=== PATIENT | male | born 1980 | race Caucasian/White ===

== ENCOUNTER 2017-03-02 19:24 | Inpatient (IN) | payer MEDICAID, OTHER, SELFPAY ==
[~2017-03-02] VITALS: Ht 190.5 cm; Wt 101.0 kg
[~2017-03-02 19:24] MED LIST: CETI10TA PO; NO HOME MEDICATION; PROZ20CA11 PO; TRAZ100T2 PO
[2017-03-02 20:24] LABS: MEAN CORPUSCULAR HEMOGLOBIN 31.3 pg (27.0-33.0); MEAN CORPUSCULAR HGB CONC 34.6 g/dl (32.0-36.5); MEAN CORPUSCULAR VOLUME 90.3 fl (80.0-96.0); RED CELL DISTRIBUTION WIDTH 12.6 % (11.5-14.5); WHITE BLOOD COUNT 11.9 K/mm3 (4.0-10.0)
[2017-03-02 20:50] LABS: METHADONE URINE NEGATIVE (NEGATIVE)
[2017-03-02 21:10] LABS: ALBUMIN 4.5 GM/DL (3.2-5.2); ALBUMIN/GLOBULIN RATIO 1.25 (1.00-1.93); ALKALINE PHOSPHATASE 74 U/L (45-117); ALT/SGPT 45 U/L (12-78); ANION GAP 11 MEQ/L (8-16); AST/SGOT 26 U/L (15-37); BILIRUBIN,DIRECT 0.2 MG/DL (0.0-0.2); BILIRUBIN,TOTAL 0.6 MG/DL (0.2-1.0); BLOOD UREA NITROGEN 9 MG/DL (7-18); CALCIUM LEVEL 10.1 MG/DL (8.5-10.1); CARBON DIOXIDE LEVEL 23 MEQ/L (21-32); CHLORIDE LEVEL 98 MEQ/L (98-107); CREATININE FOR GFR 1.13 MG/DL (0.70-1.30); GLOMERULAR FILTRATION RATE > 60.0 (>60); GLUCOSE, FASTING 100 MG/DL (70-105); POTASSIUM SERUM 3.5 MEQ/L (3.5-5.1); SODIUM LEVEL 132 MEQ/L (136-145); TOTAL PROTEIN 8.1 GM/DL (6.4-8.2)
[2017-03-02] MEDS ORDERED: TUMS750C20 PO (21:36)
[2017-03-02] MEDS ORDERED: TYLE500T78 PO (21:36)
[2017-03-02 23:11] VITALS: BP 140/92
[2017-03-03] MEDS ORDERED: MAALOX 30 ML SUSP *UDC PO PRN
[2017-03-03] MEDS ORDERED: MOM 30ML SUSPENSION UDC PO PRN
[2017-03-03] MEDS: traZODone 50 MG TAB PO PRN ×2 (01:10→21:17)
[2017-03-03] MEDS: OLANZapine ORAL DISINTEGRATING TAB 5MG PO PRN ×2 (01:10→08:50)
[2017-03-03] MEDS: NICOTINE 21MG/24HR 1 EA TRANSDERMAL TD SCH (08:47)
[2017-03-03] MEDS: ACETAMINOPHEN TAB 650MG DOSE (2X325MG) PO PRN (08:48)
--- NOTE | 2017-03-03 10:29 | HPEPDOC ---
Medical History and Physical Date of Admission Mar 02, 2017 at 22:09 History and Physical PCP: None ATTENDING: Dr. Rj Farias HPI: 37 yo M admitted to [facility] for unspecified depressive disorder, being medically examined today. No acute medical complaints today. Denies any fevers, chills, weakness, fatigue, MOSLEY, CP, SOB, cough, palpitations, abdominal pain, N/V /D or changes in bowel or bladder habits. PMHx: Anxiety Depression OCD ODD Insomnia PTSD Poor dentition PSHX: Denies SOCHX: Resides in: Homeless Marital Status: Single Kids: None Employment: Unemployed Tobacco use: 2 packs per day ETOH: A few times per week 3-6 drinks Illicit Drugs: Marijuana 1-2 times per week IV Drug Use: Denies Tattoos done unprofessionally: Denies FAMHX: Mother: Alive, well Father: , cancer Siblings: One sister Alive, well Children: None Unexpected deaths due to medical reasons: None. ROS: As noted in HPI, otherwise 11pt ROS of systems reviewed and remarkable only for poor dentition however the patient states he has not been having any dental pain recently. PE: GEN: 37 yo M, appears stated age. Well-nourished, well developed. No acute distress. Alert and oriented x 3. Avoids eye contact, slow to answer questions, mumbling. HEENT: Normocephalic, atraumatic. Pupils are equal, round, and reactive to light. Extraocular movements are intact. No nystagmus appreciated. Sclera are nonicteric. Conjunctiva without injection. Nose midline. Nasal turbinates without bogginess. EACs both patent BL. TMs both visualized and cardona with good cone of light, no bulging or erythema. No facial asymmetry. Moist mucous membranes. Dentition fair. Pharynx pink and moist, no cobblestoning. Neck supple , trachea midline. No lymphadenopathy or thyromegaly appreciated. CHEST: Regular rate and rhythm, +S1, +S2 LUNGS: Clear to auscultation bilaterally. No wheezes, rales, or rhonchi. Breathing appears symmetric and easy. Patient is speaking in full sentences. No accessory muscle use. ABD: Round, soft, non-tender, non-distended. +Bowel sounds throughout. No rebound or guarding. No costovertebral angle tenderness. EXT: Pulses 2+ bilaterally dorsalis pedis and radial. No lower extremity edema appreciated. SKIN: [place], dry, warm. Capillary refill <2sec. No rashes. NEURO: Alert and oriented x 3. Cranial nerves III-XII are intact. No focal deficits appreciated. EKG: Pending A&P: 37 yo M admitted to [facility] for unspecified depressive disorder 1. Psych. Plan per Psychiatry. Obtain baseline EKG to assure the safety of psychiatric medications as they can prolong the QT interval. 2. Nicotine dependence. Patch available. 3. Poor dentition. No issues currently. Tylenol if needed. Outpatient follow-up with dental provider. 4. Follow up. No Primary Care Provider. Will attempt to establish PCP on discharge. 5. Substance use. Per psychiatry. 6. Mild leukocytosis. Patient is afebrile. Asymptomatic. Recheck CBC in a.m. 7. Hyponatremia. Patient reports poor by mouth intake prior to admission, states he is eating and drinking. Recheck CMP in a.m. 8. Staff member Parish present throughout exam. Vital Signs Vital Signs Date Time Temp Pulse Resp B/P (MAP) Pulse Ox O2 Delivery O2 Flow Rate FiO2 03/02/17 23:11 97.8 68 140/92 (108) Room Air 03/02/17 22:56 16 95 Laboratory Data Labs 24H Laboratory Tests 2 03/02/17 20:09: Anion Gap 11, Glomerular Filtration Rate > 60.0, Calcium Level 10.1, Aspartate Amino Transf (AST/SGOT) 26, Alanine Aminotransferase (ALT/SGPT) 45, Alkaline Phosphatase 74, Total Bilirubin 0.6, Direct Bilirubin 0.2, Total Protein 8.1, Albumin 4.5, Albumin/Globulin Ratio 1.25, Thyroid Stimulating Hormone (TSH) 1.310, Salicylates Level 2.9L, Acetaminophen Level < 2.0L, Ethyl Alcohol Level < 0.003 03/02/17 20:26: Urine Amphetamines Screen NEGATIVE, Urine Benzodiazepines Screen NEGATIVE, Urine Opiates Screen NEGATIVE, Urine Methadone Screen NEGATIVE, Urine Barbiturates Screen NEGATIVE, Urine Phencyclidine Screen NEGATIVE, Urine Cocaine Metabolite Screen NEGATIVE, Urine Cannabinoids Screen POSITIVEH CBC/BMP Laboratory Tests 03/02/17 20:09 Red Blood Count 5.13, Mean Corpuscular Volume 90.3, Mean Corpuscular Hemoglobin 31.3, Mean Corpuscular Hemoglobin Concent 34.6, Red Cell Distribution Width 12.6 Home Medications Scheduled PRN Acetaminophen (Tylenol Extra Strength) 500 Mg Tab, 1,000 MG PO Q6H PRN for PAIN Calcium Carbonate (Tums E-X 750) 750 Mg Chw, 1,500 MG PO Q6H PRN for HEARTBURN Allergies Coded Allergies: No Known Allergies (Unverified , 03/02/17) Sylvia Joy Mar 03, 2017 10:29
[2017-03-03] MEDS: FLUoxetine 20 MG CAP PO SCH (12:39)
[2017-03-03 18:32] VITALS: BP 131/77
[2017-03-03] MEDS ORDERED: QUEtiapine FUMARATE 100 MG TAB PO SCH (21:00)
[2017-03-04 06:51] LABS: MEAN CORPUSCULAR HGB CONC 35.3 g/dl (32.0-36.5); MEAN CORPUSCULAR VOLUME 90.4 fl (80.0-96.0); RED CELL DISTRIBUTION WIDTH 12.2 % (11.5-14.5); WHITE BLOOD COUNT 7.8 K/mm3 (4.0-10.0)
[2017-03-04 07:08] VITALS: BP 157/86
[2017-03-04 07:21] LABS: ALBUMIN/GLOBULIN RATIO 1.21 (1.00-1.93); ALKALINE PHOSPHATASE 61 U/L (45-117); ALT/SGPT 41 U/L (12-78); ANION GAP 8 MEQ/L (8-16); AST/SGOT 19 U/L (15-37); BILIRUBIN,TOTAL 0.6 MG/DL (0.2-1.0); BLOOD UREA NITROGEN 16 MG/DL (7-18); CALCIUM LEVEL 9.2 MG/DL (8.5-10.1); CARBON DIOXIDE LEVEL 25 MEQ/L (21-32); CHLORIDE LEVEL 103 MEQ/L (98-107); CREATININE FOR GFR 1.21 MG/DL (0.70-1.30); GLOMERULAR FILTRATION RATE > 60.0 (>60); GLUCOSE, FASTING 102 MG/DL (70-105); SODIUM LEVEL 136 MEQ/L (136-145); TOTAL PROTEIN 7.3 GM/DL (6.4-8.2)
[2017-03-04] MEDS: NICOTINE 21MG/24HR 1 EA TRANSDERMAL TD SCH (08:45)
[2017-03-04] MEDS: FLUoxetine 20 MG CAP PO SCH (08:45)
[2017-03-04] MEDS: OLANZapine ORAL DISINTEGRATING TAB 5MG PO PRN (08:45)
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
[2017-03-04 12:00] VITALS: BP 120/77
[2017-03-04 18:00] VITALS: BP 129/73
[2017-03-04] MEDS ORDERED: QUEtiapine FUMARATE 100 MG TAB PO SCH (21:00)
[2017-03-05 06:23] VITALS: BP 124/63
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
[2017-03-05] MEDS: FLUoxetine 20 MG CAP PO SCH (08:01)
[2017-03-05] MEDS: NICOTINE 21MG/24HR 1 EA TRANSDERMAL TD SCH (08:02)
[2017-03-05] MEDS: OLANZapine ORAL DISINTEGRATING TAB 5MG PO PRN (08:23)
[2017-03-05] MEDS: ACETAMINOPHEN TAB 650MG DOSE (2X325MG) PO PRN (10:08)
[2017-03-05 11:47] VITALS: BP 130/70
[2017-03-05 18:00] VITALS: BP 138/92
[2017-03-05] MEDS: QUEtiapine FUMARATE 100 MG TAB PO SCH (20:34)
[2017-03-06 06:35] VITALS: BP 137/72
[2017-03-06] MEDS: NICOTINE 21MG/24HR 1 EA TRANSDERMAL TD SCH (08:58)
[2017-03-06] MEDS: FLUoxetine 20 MG CAP PO SCH (08:59)
[2017-03-06] MEDS: OLANZapine ORAL DISINTEGRATING TAB 5MG PO PRN ×2 (08:59→16:17)
[2017-03-06 11:53] VITALS: BP 137/87
--- NOTE | 2017-03-06 12:32 | IPN ---
DATE: 03/05/2017 VITAL SIGNS: Temperature 97.0, pulse 65, respirations 18, blood pressure 124/63. CURRENT MEDICATIONS: - Seroquel 200 mg at bedtime - Prozac 20 mg every morning - trazodone 50 mg at bedtime as needed - Zyprexa 5 mg every 4 hours as needed HISTORY OF PRESENT ILLNESS: Patient fell asleep faster with the Seroquel. He did not stay asleep. He woke up fairly often. He was disrupted by the 15-minute checks. He did not feel comfortable having his door open. He would keep getting up to close it. He does like to take the Zyprexa first thing in the morning, which seems to help with his anxiety and perhaps his paranoia. His appetite is good. He is eating well here. His concentration is poor, however. He still feels moderately depressed. He is afraid to go to groups. He complains of rowdy peers. He appears paranoid of others. He is encouraged to be more socially engaged. He spends a lot of time in his bedroom isolating. Patient has a single room but may have to be switched to a double. Obsessive-compulsive disorder (OCD) symptoms are mild. MENTAL STATUS EXAMINATION: Patient is alert and oriented. He remains anxiety and phobic. He reports OCD symptoms. Affect is sad. Mood is moderately depressed. Patient does appear paranoid but denies hearing voices. Insight and judgment remain fair. DIAGNOSES: 1. Major depression, recurrent, moderate severity. 2. Delusional disorder, persecutory type. 3. Obsessive-compulsive disorder. 4. Panic/anxiety disorder. 5. Alcohol use disorder. 6. Cannabis use disorder. PLAN: Increase Seroquel to 300 mg at bedtime. Continue use of Zyprexa as needed. Staff to work on housing issues.
[2017-03-06 18:16] VITALS: BP 135/90
[2017-03-06] MEDS: ACETAMINOPHEN TAB 650MG DOSE (2X325MG) PO PRN (18:51)
[2017-03-06] MEDS: QUEtiapine FUMARATE 100 MG TAB PO SCH (20:48)
[2017-03-07 06:08] VITALS: BP 143/82
[2017-03-07] MEDS: FLUoxetine 20 MG CAP PO SCH (07:45)
[2017-03-07] MEDS: OLANZapine ORAL DISINTEGRATING TAB 5MG PO PRN ×2 (07:45→17:11)
[2017-03-07] MEDS: NICOTINE 21MG/24HR 1 EA TRANSDERMAL TD SCH (07:47)
[2017-03-07 12:00] VITALS: BP 140/85
[2017-03-07] MEDS: ACETAMINOPHEN TAB 650MG DOSE (2X325MG) PO PRN (17:11)
[2017-03-07 18:23] VITALS: BP 140/82
[2017-03-07 20:00] VITALS: BP 136/84
[2017-03-07] MEDS: QUEtiapine FUMARATE 100 MG TAB PO SCH (20:56)
[2017-03-08 06:47] VITALS: BP 154/81
[2017-03-08] MEDS: OLANZapine ORAL DISINTEGRATING TAB 5MG PO PRN (07:39)
[2017-03-08] MEDS: NICOTINE 21MG/24HR 1 EA TRANSDERMAL TD SCH (07:40)
[2017-03-08] MEDS: FLUoxetine 20 MG CAP PO SCH (07:40)
[2017-03-08 07:45] VITALS: BP 122/78
[2017-03-08 12:00] VITALS: BP 142/92
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
[2017-03-08] MEDS: [UNRECOGNIZED DRUG - OTHER] TOP SCH ×2 (14:32→20:47)
[2017-03-08] MEDS: OLANZapine 5 MG TAB PO SCH ×2 (14:32→20:46)
[2017-03-08 18:00] VITALS: BP 138/80
--- NOTE | 2017-03-08 19:52 | MHIPN ---
DATE: 03/08/2017 VITAL SIGNS: Temperature 97.3, pulse 95, respirations 16, blood pressure 154/81. CURRENT MEDICATIONS: - Prozac 20 mg every morning - trazodone 50 mg nightly as needed - Seroquel 300 mg nightly - Zyprexa 5 mg every 4 hours as needed HISTORY OF PRESENT ILLNESS: Patient's room was moved, he is tolerating the roommate well. He likes the Zyprexa, it seems to help with the anxiety and the paranoia. It seems to be helping his mood as well. He feels less depressed. He is having a rare good day. His appetite is fine. He sleeps well at night with the Seroquel. He has been getting out of his room more often and attending some groups. He is contemplating leaving [place] and moving to [place] where his mother lives. This would get him away from the paranoid conspiracy here regarding Mr. Zuniga. The patient got some information from a group that helps with independent living here in the [place] area. MENTAL STATUS EXAMINATION: Patient is alert and oriented. He still appears anxious and worried. Obsessive compulsive disorder (OCD) symptoms are mild. Mood is mildly to moderately depressed. The patient still reports some paranoia. He denies hearing voices. Denying current suicidal thoughts. Insight and judgment remain fair. DIAGNOSES: 1. Major depression, recurrent, moderate severity. 2. Delusional disorder, persecutory type. 3. Obsessive compulsive disorder (OCD). 4. Panic anxiety disorder. 5. Alcohol use disorder. 6. Cannabis use disorder. PLAN: Patient to be given a standing dose of Zyprexa 5 mg twice a day.
[2017-03-08] MEDS: QUEtiapine FUMARATE 100 MG TAB PO SCH (20:47)
[2017-03-09 06:00] VITALS: BP 142/96
[2017-03-09] MEDS: NICOTINE 21MG/24HR 1 EA TRANSDERMAL TD SCH (08:01)
[2017-03-09] MEDS: OLANZapine 5 MG TAB PO SCH ×2 (08:01→20:11)
[2017-03-09] MEDS: FLUoxetine 20 MG CAP PO SCH (08:01)
[2017-03-09] MEDS: [UNRECOGNIZED DRUG - OTHER] TOP SCH ×2 (08:01→20:57)
[2017-03-09] MEDS: OLANZapine ORAL DISINTEGRATING TAB 5MG PO PRN (12:59)
[2017-03-09 18:00] VITALS: BP 127/78
[2017-03-09] MEDS: ACETAMINOPHEN TAB 650MG DOSE (2X325MG) PO PRN (18:59)
[2017-03-09] MEDS: QUEtiapine FUMARATE 100 MG TAB PO SCH (20:56)
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
[2017-03-10 07:07] VITALS: BP 146/90
[2017-03-10] MEDS: NICOTINE 21MG/24HR 1 EA TRANSDERMAL TD SCH (08:52)
[2017-03-10] MEDS: OLANZapine 5 MG TAB PO SCH ×2 (08:52→20:14)
[2017-03-10] MEDS: FLUoxetine 20 MG CAP PO SCH (08:52)
[2017-03-10] MEDS: [UNRECOGNIZED DRUG - OTHER] TOP SCH ×2 (08:53→20:15)
[2017-03-10] MEDS: OLANZapine ORAL DISINTEGRATING TAB 5MG PO PRN (13:28)
[2017-03-10 18:31] VITALS: BP 151/89
[2017-03-10] MEDS: QUEtiapine FUMARATE 100 MG TAB PO SCH (21:34)
[2017-03-11 06:23] VITALS: BP 128/71
--- NOTE | 2017-03-11 07:29 | IPN ---
DATE: 03/10/2017 Temperature 97.0, pulse 79, respirations 18, blood pressure 146/90. CURRENT MEDICATION: - Prozac 40 mg every morning - Zyprexa 5 mg twice a day - Seroquel 300 mg at bedtime (hs) - trazodone 50 mg hs as needed - Zyprexa 5 mg every 4 hours as needed HISTORY OF PRESENT ILLNESS: The patient is starting a higher dose of Prozac this morning. He has not received it yet. Yesterday was not as good a day as the day before. He did feel more anxious and dysphoric yesterday. He did push himself, however, to go to the groups. Depression was in a moderate range. Obsessive compulsive disorder (OCD) symptoms were mild. He does like to wash his hands constantly. He is concerned and phobic about germs. He does like the Zyprexa; it helps with anxiety, but also paranoia. He appears to have social phobic symptoms, but also paranoid ideation. He is afraid people might be poisoning him for example. He does admit that this temper is like a "time bomb." He states that his sister also has a bad temper and can be quite violent when intoxicated. The patient is currently homeless. He has no health insurance. Staff has been in touch with his mother. One possible option would to be discharge to her care in [place]. Otherwise, he might need to go to local [facility]. MENTAL STATUS EXAMINATION: The patient is alert and oriented. He is cooperative. He is still quite anxious and worried. Depression is in the moderate range. He is not current suicidal. he patient is still paranoid, but denies hearing voices. No signs of thought disorder. Insight and judgment are fair. DIAGNOSIS: 1. Major depression recurrent, moderate in severity. 2. Delusional disorder, persecutory type. 3. Obsessive compulsive disorder (OCD). 4. Panic anxiety disorder. 5. Alcohol use disorder. 6. Cannabis use disorder. PLAN: Continue current psychotropics. Staff working on various housing options. Prozac dose to be increased today. The patient to be monitored for any potential side effects.
[2017-03-11] MEDS: [UNRECOGNIZED DRUG - OTHER] TOP SCH ×2 (08:20→20:37)
[2017-03-11] MEDS: OLANZapine 5 MG TAB PO SCH ×2 (08:21→20:36)
[2017-03-11] MEDS: FLUoxetine 20 MG CAP PO SCH (08:21)
[2017-03-11] MEDS: NICOTINE 21MG/24HR 1 EA TRANSDERMAL TD SCH (08:21)
[2017-03-11] MEDS: ACETAMINOPHEN TAB 650MG DOSE (2X325MG) PO PRN (09:58)
[2017-03-11] MEDS: OLANZapine ORAL DISINTEGRATING TAB 5MG PO PRN (16:49)
[2017-03-11 18:00] VITALS: BP 142/89
[2017-03-11] MEDS: QUEtiapine FUMARATE 100 MG TAB PO SCH (20:37)
[2017-03-12 06:35] VITALS: BP 150/77
--- NOTE | 2017-03-12 08:12 | MHIPN ---
DATE: 03/11/2017 VITAL SIGNS: Temperature 97.9, pulse 69, respirations 16, blood pressure 128/71. CURRENT MEDICATIONS: - Prozac 40 mg every morning - Zyprexa 5 mg twice a day - Seroquel 300 mg at bedtime - trazodone 50 mg at bedtime as needed HISTORY OF PRESENT ILLNESS: The patient tolerated the 40 mg dose of Prozac well yesterday. He has no gastrointestinal side effects. He thinks his anxiety is less prominent. He still has a lot of social anxiety, however. He is quite phobic. He does have to push himself to go to the groups. The Zyprexa does seem to have helped with the paranoia. For example, in the past he has felt that people were spying on him and/or trying to poison his food. His appetite has been fine on the unit. He is sleeping well at night with the psychotropics, but did have a nightmare last night which may have been due to his wearing the nicotine patch. He is requesting help with his Social Security application from an agency in the community. He is interested in going into transitional living services ([facility]) now. MENTAL STATUS EXAMINATION: The patient is alert, oriented and cooperative. The patient is chronically anxious and worried. Depression is in the moderate range. The patient is not currently suicidal. Paranoia persists. No signs of thought disorder. Insight and judgment are fair. DIAGNOSES: 1. Major depression, recurrent, moderate severity. 2. Delusional disorder, persecutory type. 3. Obsessive compulsive disorder. 4. Panic anxiety disorder. 5. Alcohol use disorder. 6. Cannabis use disorder. PLAN: No change in psychotropics. Patient to remove his nicotine patch before bedtime. staff to work on [facility] housing options upon discharge. CHULA
[2017-03-12] MEDS: NICOTINE 21MG/24HR 1 EA TRANSDERMAL TD SCH (09:03)
[2017-03-12] MEDS: FLUoxetine 20 MG CAP PO SCH (09:04)
[2017-03-12] MEDS: [UNRECOGNIZED DRUG - OTHER] TOP SCH ×2 (09:04→21:09)
[2017-03-12] MEDS: OLANZapine 5 MG TAB PO SCH ×2 (09:04→21:08)
[2017-03-12] MEDS: ACETAMINOPHEN TAB 650MG DOSE (2X325MG) PO PRN ×2 (09:32→20:37)
[2017-03-12] MEDS: OLANZapine ORAL DISINTEGRATING TAB 5MG PO PRN (15:45)
[2017-03-12 18:00] VITALS: BP 136/87
[2017-03-12] MEDS: QUEtiapine FUMARATE 100 MG TAB PO SCH (21:09)
[2017-03-13 06:43] VITALS: BP 138/92
[2017-03-13] MEDS: OLANZapine 5 MG TAB PO SCH ×2 (08:03→20:08)
[2017-03-13] MEDS: NICOTINE 21MG/24HR 1 EA TRANSDERMAL TD SCH (08:03)
[2017-03-13] MEDS: [UNRECOGNIZED DRUG - OTHER] TOP SCH ×2 (08:03→20:08)
[2017-03-13] MEDS: FLUoxetine 20 MG CAP PO SCH (08:03)
--- NOTE | 2017-03-13 11:14 | MHIPN ---
DATE: 03/12/2017 VITAL SIGNS: Temperature 99.5, pulse 82, respirations 16, blood pressure 150/77. CURRENT MEDICATION: - Prozac 40 mg every morning - Zyprexa 5 mg twice a day - Seroquel 300 mg at bedtime - trazodone 50 mg at bedtime as needed HISTORY OF PRESENT ILLNESS: The patient complains about his roommate situation. His roommate has been very sleepy and spending most of the day in bed. The patient does not feel comfortable staying in his room with the roommate. He feels uncomfortable about seeming noisy. The patient is on the unit. The patient is still anxious about the future. He feels mildly to moderately depressed. He is not suicidal. Paranoia fluctuates. He denies hearing voices. He is tolerating a higher dose of Prozac well. He is agreeable to [facility] ([facility]) referral for housing. The patient will be switched to voluntary status. MENTAL STATUS EXAMINATION: The patient is alert, oriented and cooperative. The patient has chronic anxiety and worry. Depression is still in the moderate range, but he is not currently suicidal. He is not homicidal. He does have chronic paranoia. He denies hearing voices. Insight and judgment remain fair. DIAGNOSES: Major depression, recurrent, moderate severity. Delusional disorder, persecutory type. Obsessive compulsive disorder. Panic and anxiety disorder. Alcohol use disorder. Cannabis use disorder. PLAN: No change in medication and milieu. The patient will be switched to voluntary basis over the weekend.
[2017-03-13 18:00] VITALS: BP 126/81
[2017-03-13] MEDS: ACETAMINOPHEN TAB 650MG DOSE (2X325MG) PO PRN (21:22)
[2017-03-13] MEDS: QUEtiapine FUMARATE 100 MG TAB PO SCH (22:11)
[2017-03-14 06:51] VITALS: BP 133/78
[2017-03-14] MEDS: NICOTINE 21MG/24HR 1 EA TRANSDERMAL TD SCH (08:09)
[2017-03-14] MEDS: OLANZapine 5 MG TAB PO SCH ×2 (08:09→20:10)
[2017-03-14] MEDS: FLUoxetine 20 MG CAP PO SCH (08:09)
[2017-03-14] MEDS: [UNRECOGNIZED DRUG - OTHER] TOP SCH ×2 (08:10→20:11)
[2017-03-14] MEDS: OLANZapine ORAL DISINTEGRATING TAB 5MG PO PRN (14:05)
[2017-03-14 18:00] VITALS: BP 145/97
[2017-03-14] MEDS: QUEtiapine FUMARATE 100 MG TAB PO SCH (20:48)
[2017-03-14] MEDS: ACETAMINOPHEN TAB 650MG DOSE (2X325MG) PO PRN (21:13)
[2017-03-15 07:12] VITALS: BP 127/69
[2017-03-15] MEDS: OLANZapine 5 MG TAB PO SCH ×2 (08:23→20:19)
[2017-03-15] MEDS: NICOTINE 21MG/24HR 1 EA TRANSDERMAL TD SCH (08:23)
[2017-03-15] MEDS: FLUoxetine 20 MG CAP PO SCH (08:23)
[2017-03-15] MEDS: [UNRECOGNIZED DRUG - OTHER] TOP SCH ×2 (08:24→20:19)
--- NOTE | 2017-03-15 14:28 | MHIPN ---
DATE: 03/15/2017 VITAL SIGNS: Temperature 97.9, pulse 69, respirations 18, blood pressure 127/69. CURRENT MEDICATIONS: - Prozac 40 mg in the morning - Zyprexa 5 mg twice a day - Seroquel 300 mg at night - trazodone 50 mg at night - Zyprexa 5 mg every 4 hours as needed HISTORY OF PRESENT ILLNESS: The patient feels comfortable with his roommate, who is relatively quiet. He is still paranoid, however. He believes that his girlfriend was cheating him prior to admission. He requests HIV testing. The patient meets with [facility] ([facility]) housing today for assistance upon discharge. The patient has found the Prozac helpful. His anxiety is not as severe in group situation. He still feels mildly to moderately depressed. MENTAL STATUS EXAMINATION: The patient is alert, oriented and cooperative. The patient has chronic anxiety. He has chronic worry. Depression is in the moderate range. He is not voicing any suicidal thoughts here on the unit. He is not homicidal either. Paranoia persists, but he denies hearing voices. Insight and judgment remain fair. DIAGNOSES: 1. Major depression, recurrent, moderate severity. 2. Delusional disorder, persecutory type. 3. Obsessive compulsive disorder. 4. Panic/anxiety disorder. 5. Alcohol use disorder. 6. Cannabis use disorder. Change to voluntary status. Continue psychotropics and milieu therapy.
[2017-03-15] MEDS: ACETAMINOPHEN TAB 650MG DOSE (2X325MG) PO PRN (18:15)
[2017-03-15 18:31] VITALS: BP 119/68
[2017-03-15] MEDS: QUEtiapine FUMARATE 100 MG TAB PO SCH (20:19)
[2017-03-16 06:54] VITALS: BP 134/77
[2017-03-16] MEDS: OLANZapine 5 MG TAB PO SCH ×2 (08:15→20:32)
[2017-03-16] MEDS: FLUoxetine 20 MG CAP PO SCH (08:15)
[2017-03-16] MEDS: [UNRECOGNIZED DRUG - OTHER] TOP SCH ×2 (08:16→20:33)
[2017-03-16] MEDS: NICOTINE 21MG/24HR 1 EA TRANSDERMAL TD SCH (08:16)
--- NOTE | 2017-03-16 11:40 | IPN ---
DATE: 03/16/2017 VITAL SIGNS: Temperature 97.9, pulse 71, respirations 16, blood pressure 134/77. CURRENT MEDICATIONS: - Prozac 40 mg in the morning - Zyprexa 5 mg twice a day - Seroquel 300 mg at night - trazodone 50 mg at night HISTORY OF PRESENT ILLNESS: The patient remains anxious about his roommate. His new roommate is relatively quiet. He does get quite anxious in social situations, like groups. His depression is chronic, it is in moderate range. He did meet with [facility] housing sales support specialist. He is on their waiting list, but it might take some weeks before he gets housing. There is another program that might be available to help with housing as well. The patient is on two different antipsychotics. Risk and benefit profile reviewed. Lipid profile is ordered to monitor cholesterol, triglycerides, etc. The patient is still paranoid. He feels safe here on the unit, but he feels that there is a "target" on his head out in the community. He feels that people are looking for him to kill him. The patient was switched to voluntary status yesterday. MENTAL STATUS EXAMINATION: The patient is awake, alert and cooperative. The patient has chronic anxiety and chronic depression, both are in the moderate range. He has no suicidal thoughts. He is not homicidal. The patient still reports paranoia. He denies hearing voices. No signs of thought disorder. Insight and judgment are fair. No signs of memory deficits. DIAGNOSES: 1. Major depression, recurrent, moderate severity. 2. Delusional disorder, persecutory type. 3. Obsessive compulsive disorder. 4. Panic/anxiety disorder. 5. Alcohol use disorder. 6. Cannabis use disorder. PLAN: Obtain lipid profile, as the patient is on two different antipsychotics. Staff are working on housing options for discharge.
[2017-03-16] MEDS: OLANZapine ORAL DISINTEGRATING TAB 5MG PO PRN (14:25)
[2017-03-16 18:12] VITALS: BP 138/81
[2017-03-16] MEDS: ACETAMINOPHEN TAB 650MG DOSE (2X325MG) PO PRN (19:20)
[2017-03-16] MEDS: QUEtiapine FUMARATE 100 MG TAB PO SCH (20:32)
[2017-03-17 07:20] VITALS: BP 143/78
[2017-03-17] MEDS: FLUoxetine 20 MG CAP PO SCH (08:05)
[2017-03-17] MEDS: OLANZapine 5 MG TAB PO SCH ×2 (08:05→20:11)
[2017-03-17] MEDS: NICOTINE 21MG/24HR 1 EA TRANSDERMAL TD SCH (08:05)
[2017-03-17] MEDS: [UNRECOGNIZED DRUG - OTHER] TOP SCH ×2 (08:05→20:11)
--- NOTE | 2017-03-17 12:49 | MHIPN ---
DATE: 03/17/2017 VITAL SIGNS: Temperature 99.2, pulse 72, respirations 16, blood pressure 143/78. CURRENT MEDICATIONS: - Prozac 40 mg in the morning - Zyprexa 5 mg twice a day - Seroquel 300 mg at night - trazodone 50 mg at night as needed HISTORY OF PRESENT ILLNESS: The patient has chronic anxiety and depression, both mild to moderate. He feels psychotropics have been somewhat helpful. He remains paranoid, especially about walking in the community. He is afraid that he will be targeted with guns and killed. He will have a social work agency who is willing to assist him with transportation, etc. upon discharge. The patient is agreeable to emergency housing, as no apartments are currently available. The patient's lipid profile is pending. His HIV test was negative. MENTAL STATUS EXAMINATION: The patient is alert, oriented and cooperative. No change in chronic anxiety. The patient has mild to moderate depression. No current suicidal thoughts. He is not homicidal. Paranoia is chronic. The patient denies hearing voices. Insight and judgment are fair. DIAGNOSES: 1. Major depression, recurrent, moderate in severity. 2. Delusional disorder, persecutory type. 3. Obsessive compulsive disorder (OCD). 4. Panic/anxiety disorder. 5. Alcohol use disorder. 6. Cannabis use disorder. Continue present management. Involve with hospital milieu. Staff working on discharge planning.
[2017-03-17 18:06] VITALS: BP 134/89
[2017-03-17] MEDS: QUEtiapine FUMARATE 100 MG TAB PO SCH (21:10)
[2017-03-18 07:22] VITALS: BP 125/68
[2017-03-18] MEDS: FLUoxetine 20 MG CAP PO SCH (08:11)
[2017-03-18] MEDS: OLANZapine 5 MG TAB PO SCH ×2 (08:11→20:36)
[2017-03-18] MEDS: [UNRECOGNIZED DRUG - OTHER] TOP SCH ×2 (08:11→20:36)
[2017-03-18] MEDS: NICOTINE 21MG/24HR 1 EA TRANSDERMAL TD SCH (08:12)
[2017-03-18] MEDS: OLANZapine ORAL DISINTEGRATING TAB 5MG PO PRN (13:41)
[2017-03-18 18:00] VITALS: BP 147/82
--- NOTE | 2017-03-18 18:04 | MHIPN ---
DATE: 03/18/2017 VITAL SIGNS: Temperature 98.0, pulse 78, respirations 18, blood pressure 125/68. CURRENT MEDICATIONS: - Prozac 40 mg in the morning - Zyprexa 5 mg twice a day - Seroquel 300 mg at night - Zyprexa 5 mg every 4 hours as needed HISTORY OF PRESENT ILLNESS: The patient still reports chronic anxiety. Depression is mild to moderate range. He worries about the future. He is resigned to the fact that he will need to go to emergency housing, as there are no apartments available at this time. The patient is more engaged with community based resources. He does feel reasonably optimistic. His mood has been relatively stable here on the unit. No temper outbursts. He is attending groups. Appetite is good. He is sleeping well. Lipid profile is available. Triglycerides are within normal limits at 147. Total cholesterol within normal limits of 174. The patient's LDL cholesterol however is elevated at 106.6. His HDL cholesterol is low at 38. MENTAL STATUS EXAMINATION: The patient is alert and oriented. Anxiety is moderate. Depression and mild to moderate. The patient is not suicidal. The patient has chronic paranoia but denies hearing voices. Insight and judgment are fair. No current signs of dangerousness. DIAGNOSES: 1. Major depression, recurrent with psychotic features. 2. Obsessive compulsive disorder. 3. Panic and anxiety disorder. 4. Alcohol use disorder. 5. Cannabis use disorder. PLAN: Continue present management. Tentative discharge date early next week.
[2017-03-18] MEDS: QUEtiapine FUMARATE 100 MG TAB PO SCH (20:36)
[2017-03-19 07:00] VITALS: BP 142/79
[2017-03-19] MEDS: FLUoxetine 20 MG CAP PO SCH (08:35)
[2017-03-19] MEDS: [UNRECOGNIZED DRUG - OTHER] TOP SCH ×2 (08:35→20:15)
[2017-03-19] MEDS: OLANZapine 5 MG TAB PO SCH ×2 (08:36→20:16)
[2017-03-19] MEDS: NICOTINE 21MG/24HR 1 EA TRANSDERMAL TD SCH (08:36)
[2017-03-19 18:00] VITALS: BP 152/85
--- NOTE | 2017-03-19 19:32 | MHIPN ---
DATE: 03/19/2017 VITAL SIGNS: Temperature 97.5, pulse 75, respirations 19, blood pressure 142/79. CURRENT MEDICATIONS: - Prozac 40 mg every morning - Zyprexa 5 mg twice a day - Seroquel 300 mg at bedtime - trazodone 50 mg at bedtime as needed HISTORY OF PRESENT ILLNESS: The patient is still reporting anxiety symptoms. He has chronic depression in the moderate range. He denies any major mood swings; however, he is grieving the loss of his girlfriend. The patient describes his history of avoidance. He would isolate at home and she would take care of him in a way that clearly was not in his best interests. The patient has been recently cooperative and active in the hospital milieu. MENTAL STATUS EXAMINATION: The patient is alert and oriented. He is cooperative. Anxiety and depression are in mild to moderate range. No signs of dangerousness. He is not suicidal or homicidal. The patient does have chronic paranoia but is not hearing voices. Insight and judgment are fair. DIAGNOSES: 1. Major depression, recurrent with psychotic features. 2. Obsessive compulsive disorder. 3. Panic anxiety disorder. 4. Alcohol use disorder. 5. Cannabis use disorder. PLAN: No change in medications. Plans for discharge on Wednesday with outpatient mental health followup.
[2017-03-19] MEDS: QUEtiapine FUMARATE 100 MG TAB PO SCH (20:16)
[2017-03-20 06:55] VITALS: BP 141/76
[2017-03-20] MEDS: NICOTINE 21MG/24HR 1 EA TRANSDERMAL TD SCH (08:22)
[2017-03-20] MEDS: OLANZapine 5 MG TAB PO SCH ×2 (08:23→20:13)
[2017-03-20] MEDS: FLUoxetine 20 MG CAP PO SCH (08:23)
[2017-03-20] MEDS: [UNRECOGNIZED DRUG - OTHER] TOP SCH ×2 (08:23→20:29)
[2017-03-20 18:00] VITALS: BP 128/76
[2017-03-20] MEDS: ACETAMINOPHEN TAB 650MG DOSE (2X325MG) PO PRN (18:01)
[2017-03-20] MEDS: QUEtiapine FUMARATE 100 MG TAB PO SCH (20:14)
[2017-03-21 06:35] VITALS: BP 117/63
[2017-03-21] MEDS: FLUoxetine 20 MG CAP PO SCH (08:32)
[2017-03-21] MEDS: OLANZapine 5 MG TAB PO SCH ×2 (08:32→20:51)
[2017-03-21] MEDS: [UNRECOGNIZED DRUG - OTHER] TOP SCH ×2 (08:32→20:50)
[2017-03-21] MEDS: NICOTINE 21MG/24HR 1 EA TRANSDERMAL TD SCH (08:32)
[2017-03-21] MEDS: SODIUM CHLORIDE NASAL 0.65% SPRAY BTL (OCEAN) PRN ×2 (11:25→18:24)
[2017-03-21] MEDS: OLANZapine ORAL DISINTEGRATING TAB 5MG PO PRN (18:24)
[2017-03-21 18:35] VITALS: BP 133/79
[2017-03-21] MEDS: QUEtiapine FUMARATE 100 MG TAB PO SCH (20:51)
[2017-03-21] MEDS: ACETAMINOPHEN TAB 650MG DOSE (2X325MG) PO PRN (20:52)
[2017-03-22 07:13] VITALS: BP 128/71
[2017-03-22] MEDS: [UNRECOGNIZED DRUG - OTHER] TOP SCH (08:27)
[2017-03-22] MEDS: OLANZapine 5 MG TAB PO SCH (08:27)
[2017-03-22] MEDS: FLUoxetine 20 MG CAP PO SCH (08:27)
[2017-03-22] MEDS: NICOTINE 21MG/24HR 1 EA TRANSDERMAL TD SCH (08:27)
[2017-03-22] MEDS ORDERED: FLUO40CA PO (09:20)
[2017-03-22] MEDS ORDERED: OLAN5TAB PO (09:20)
[2017-03-22] MEDS ORDERED: ZYPR5TAB2 PO (09:20)
[2017-03-22] MEDS ORDERED: QUET1TAB10 PO (09:20)
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
== END 2017-03-22 11:35 | disposition home or self-care (01) | DRG 751 ==
LOC: M ED 19:24 → M ED INP 22:09 → M PSY 23:05
PROVIDERS: ADMIT Psychiatry & Neurology Psychiatry; ATTEND Psychiatry & Neurology Psychiatry
DX: F33.3 Major depressive disorder, recurrent, severe with psychotic symptoms (principal); E87.1 Hypo-osmolality and hyponatremia; R45.851 Suicidal ideations; F12.10 Cannabis abuse, uncomplicated; F10.10 Alcohol abuse, uncomplicated; F42.9 Obsessive-compulsive disorder, unspecified; F41.0 Panic disorder [episodic paroxysmal anxiety]; F17.210 Nicotine dependence, cigarettes, uncomplicated; D72.829 Elevated white blood cell count, unspecified; F19.90 Other psychoactive substance use, unspecified, uncomplicated; Z79.899 Other long term (current) drug therapy

== ENCOUNTER → 2017-05-19 | Outpatient (REF) | payer MEDICAID, SELFPAY ==
[~2017-05-19] MED LIST changes: +FLUO40CA PO; +OLAN5TAB PO; +QUET1TAB10 PO; +TUMS750C20 PO; +TYLE500T78 PO; +ZYPR5TAB2 PO
[2017-05-24 14:13] LABS: GC Carboxy THC 174 ng/mL (Cutoff=10)
== END ==
LOC: M OUTALCOH 15:32
PROVIDERS: ATTEND Psychiatry & Neurology Psychiatry
DX: F12.10 Cannabis abuse, uncomplicated (principal)
CPT/HCPCS: 80307; G0480

== ENCOUNTER → 2017-07-26 | Outpatient (CLI) | payer OTHER ==
[2017-07-26 14:30] LABS: MEAN CORPUSCULAR HEMOGLOBIN 31.5 pg (27.0-33.0); MEAN CORPUSCULAR HGB CONC 34.4 g/dl (32.0-36.5); MEAN CORPUSCULAR VOLUME 91.4 fl (80.0-96.0); PLATELET COUNT, AUTOMATED 322 10^3/uL (150-450); RED CELL DISTRIBUTION WIDTH 12.3 % (11.5-14.5)
[2017-07-26 15:32] LABS: ALBUMIN 4.1 GM/DL (3.2-5.2); ALBUMIN/GLOBULIN RATIO 1.17 (1.00-1.93); ALKALINE PHOSPHATASE 82 U/L (45-117); ALT/SGPT 31 U/L (12-78); ANION GAP 11 MEQ/L (8-16); AST/SGOT 19 U/L (7-37); BILIRUBIN,TOTAL 0.6 MG/DL (0.2-1.0); BLOOD UREA NITROGEN 7 MG/DL (7-18); CALCIUM LEVEL 9.4 MG/DL (8.5-10.1); CARBON DIOXIDE LEVEL 25 MEQ/L (21-32); CHLORIDE LEVEL 102 MEQ/L (98-107); CHOLESTEROL LEVEL 171 MG/DL (<200); CREATININE FOR GFR 1.19 MG/DL (0.70-1.30); GLOMERULAR FILTRATION RATE > 60.0 (>60); GLUCOSE, FASTING 127 MG/DL (70-105); PERCENT SATURATION 28.4 % (19.7-50.0); POTASSIUM SERUM 4.7 MEQ/L (3.5-5.1); SODIUM LEVEL 138 MEQ/L (136-145); THYROXINE (T4) 9.1 UG/DL (4.5-12.0); TOTAL IRON BINDING CAPACITY 380 UG/DL (250-450); TOTAL PROTEIN 7.6 GM/DL (6.4-8.2); TRIGLYCERIDES LEVEL 91 MG/DL (<150)
== END ==
LOC: M LAB 13:48
PROVIDERS: ATTEND Family Medicine
DX: D64.9 Anemia, unspecified (principal)

== ENCOUNTER → 2017-08-17 | Outpatient (CLI) | payer OTHER | LOC: M RAD 14:26 | DX: M54.5 Low back pain (principal) | CPT/HCPCS: 72110 ==

== ENCOUNTER → 2021-01-01 | Outpatient (CLI) | payer OTHER ==
[~2021-01-01] MED LIST changes: -QUET1TAB10 PO; +QUET300T2 PO
[2021-01-01 10:04] LABS: HEMATOCRIT 44.3 % (42.0-52.0); HEMOGLOBIN 15.3 g/dl (13.5-17.5); MEAN CORPUSCULAR HEMOGLOBIN 31.6 pg (27.0-33.0); MEAN CORPUSCULAR HGB CONC 34.5 g/dl (32.0-36.5); MEAN CORPUSCULAR VOLUME 91.5 fl (80.0-96.0); PLATELET COUNT, AUTOMATED 373 10^3/uL (150-450); RED BLOOD COUNT 4.84 10^6/uL (4.30-6.10); WHITE BLOOD COUNT 10.2 10^3/uL (4.0-10.0)
[2021-01-01 11:28] LABS: ALT/SGPT 28 U/L (12-78); BLOOD UREA NITROGEN 12 MG/DL (7-18); CALCIUM LEVEL 9.8 MG/DL (8.5-10.1); CARBON DIOXIDE LEVEL 28 MEQ/L (21-32); CHLORIDE LEVEL 106 MEQ/L (98-107); GLOMERULAR FILTRATION RATE > 60.0 (>60); GLUCOSE, FASTING 116 MG/DL (70-100); POTASSIUM SERUM 3.7 MEQ/L (3.5-5.1); SODIUM LEVEL 143 MEQ/L (136-145)
[2021-01-01 11:29] LABS: BILIRUBIN,TOTAL 0.3 MG/DL (0.2-1.0); CHOLESTEROL LEVEL 196 MG/DL (<200); HDL CHOLESTEROL 28 MG/DL (>40); LDL CHOLESTEROL 111 MG/DL (<100); NON-HDL-C 168 MG/DL; TOTAL 25(OH) VITAMIN D 27.3 NG/ML (30.0-100.0); TOTAL PROTEIN 7.3 GM/DL (6.4-8.2); TRIGLYCERIDES LEVEL 286 MG/DL (<150)
== END ==
LOC: M LAB 09:17
PROVIDERS: ATTEND Family Medicine
DX: D64.9 Anemia, unspecified (principal); R53.83 Other fatigue; E03.9 Hypothyroidism, unspecified

== ENCOUNTER → 2021-10-23 | Outpatient (CLI) | payer OTHER ==
[~2021-10-23] MED LIST changes: +OLAN1TAB16 PO; -OLAN5TAB PO
[2021-10-23 12:10] LABS: HEMATOCRIT 40.5 % (42.0-52.0); HEMOGLOBIN 14.4 g/dl (13.5-17.5); MEAN CORPUSCULAR HEMOGLOBIN 31.3 pg (27.0-33.0); MEAN CORPUSCULAR HGB CONC 35.6 g/dl (32.0-36.5); PLATELET COUNT, AUTOMATED 354 10^3/uL (150-450); WHITE BLOOD COUNT 11.7 10^3/uL (4.0-10.0)
[2021-10-23 12:58] LABS: ALBUMIN 4.4 GM/DL (3.2-5.2); ALT/SGPT 25 U/L (12-78); BILIRUBIN,TOTAL 0.4 MG/DL (0.2-1.0); BLOOD UREA NITROGEN 8 MG/DL (7-18); CALCIUM LEVEL 9.9 MG/DL (8.5-10.1); CARBON DIOXIDE LEVEL 27 MEQ/L (21-32); CHLORIDE LEVEL 104 MEQ/L (98-107); CHOLESTEROL LEVEL 169 MG/DL (<200); CHOLESTEROL RISK RATIO 5.281 (<5); CREATININE FOR GFR 1.17 MG/DL (0.70-1.30); GLOMERULAR FILTRATION RATE > 60.0 (>60); GLUCOSE, FASTING 105 MG/DL (70-100); HDL CHOLESTEROL 32 MG/DL (>40); LDL CHOLESTEROL 115 MG/DL (<100); NON-HDL-C 137 MG/DL; POTASSIUM SERUM 3.8 MEQ/L (3.5-5.1); SODIUM LEVEL 137 MEQ/L (136-145); THYROID STIMULATING HORMONE 0.839 uIU/ML (0.358-3.740); TOTAL PROTEIN 7.2 GM/DL (6.4-8.2); TRIGLYCERIDES LEVEL 111 MG/DL (<150)
== END ==
LOC: M RAD 11:42
PROVIDERS: ATTEND Family Medicine
DX: R53.83 Other fatigue (principal); J44.9 Chronic obstructive pulmonary disease, unspecified